=== PATIENT | female | born 1965 | race Caucasian/White ===

== ENCOUNTER 2023-07-11 21:57 | Emergency (ER) | payer OTHER ==
[~2023-07-11] VITALS: Ht 165.1 cm; Wt 95.3 kg
[2023-07-11 22:06] VITALS: BP_SYST 193; PULSE 105; RESP 18; TEMP 97.5; O2SAT 97
[2023-07-11] MEDS: HYDROcodone/ACETAMIN 5-325 MG TAB (NORCO/ VICODIN) PO ONE (23:39)
[2023-07-11] MEDS: DIPHTH,PERTUSS(ACELL),TET VAC 0.5 ML VIAL (Tdap) I.M. ONE (23:42)
[2023-07-12] MEDS: LIDOCAINE/EPI 1% 1:100000 20 ML VIAL INJ ONE (01:30)
[2023-07-12] MEDS ORDERED: BACITRACIN 1 GM OINT TP ONE (02:07)
[2023-07-12] MEDS ORDERED: CEPH-548 PO (02:13)
[2023-07-12] MEDS ORDERED: HYDR-3917 PO (02:13)
[2023-07-12] MEDS ORDERED: IBUP-1969 PO (02:13)
[2023-07-12 02:36] VITALS: BP_SYST 153; PULSE 118; RESP 18; TEMP 97.5; O2SAT 97
[2023-07-13] MEDS ORDERED: CLIN-142 PO (18:57)
== END 2023-07-12 02:36 | disposition home or self-care (01) ==
LOC: SED 21:57
DX: S81.812A Laceration without foreign body, left lower leg, initial encounter (principal); S43.402A Unspecified sprain of left shoulder joint, initial encounter; S80.11XA Contusion of right lower leg, initial encounter; W01.0XXA Fall on same level from slipping, tripping and stumbling without subsequent striking against object, initial encounter; Y93.89 Activity, other specified; Y92.89 Other specified places as the place of occurrence of the external cause; Y99.8 Other external cause status; Z88.0 Allergy status to penicillin; E11.9 Type 2 diabetes mellitus without complications; I10 Essential (primary) hypertension; Z79.899 Other long term (current) drug therapy
CPT/HCPCS: 73030; 90715; 99284

== ENCOUNTER 2023-07-13 18:26 | Emergency (ER) | payer OTHER ==
[~2023-07-13] VITALS: Ht 165.1 cm; Wt 95.3 kg
[~2023-07-13 18:26] MED LIST: CEPH-548 PO; HYDR-3917 PO; IBUP-1969 PO
[2023-07-13 18:32] VITALS: BP_SYST 169; PULSE 82; RESP 18; TEMP 97.7; O2SAT 97
[2023-07-13] MEDS ORDERED: CLIN-142 PO (18:57)
[2023-07-13 19:04] VITALS: BP_SYST 169; PULSE 82; RESP 18; TEMP 97.7; O2SAT 97
[2023-07-13] MEDS: BACITRACIN 1 GM OINT TP ONE (19:11)
== END 2023-07-13 18:55 | disposition home or self-care (01) ==
LOC: SED 18:26
DX: S81.812D Laceration without foreign body, left lower leg, subsequent encounter (principal); X58.XXXD Exposure to other specified factors, subsequent encounter; Z88.0 Allergy status to penicillin; Z79.899 Other long term (current) drug therapy; E11.9 Type 2 diabetes mellitus without complications; I10 Essential (primary) hypertension
CPT/HCPCS: 99283